=== PATIENT | male | born 1955 ===

== ENCOUNTER 2021-07-18 06:44 | Day surgery (SDC) | payer BC, OTHER ==
[2021-07-15 13:34] LABS: Absolute Lymphocytes (CBC) 2.2 K/uL (0.7-4.9); Hematocrit 41.9 % (39.6-49.0); RBC Red Blood Cell Count 4.36 M/uL (4.33-5.43)
[2021-07-15 13:42] LABS: Potassium 4.4 mmol/L (3.5-5.1)
[2021-07-15 13:45] LABS: Protime INR 1.59
--- NOTE | 2021-07-15 14:29 | RAD REPORT ---
EXAM DESCRIPTION: RAD - Chest Pa And Lat (2 Views) - 07/15/2021 2:00 pm CLINICAL HISTORY: Pre op pending carotid angiogram COMPARISON: Portable 04/20/2016 TECHNIQUE: Frontal and lateral views of the chest were obtained. FINDINGS: The lungs are clear. Sternotomy wires are in place. Heart size is normal and central vasc ulature is within normal limits. No pleural effusion or pneumothorax seen. No acute bony finding no valente. No aortic abnormality. IMPRESSION: No acute cardiopulmonary process.
[~2021-07-18 06:44] MED LIST: ATROPINE SULF 1 MG/10 ML SYR IV ONE; FENTANYL CITR 100 MCG/2 ML ONE; HEPA 1000U/500MLS 1,000 UNIT/500 ML BAG IV ONE; LIDOCAINE 1% 20 ML MDV ONE; MIDAZOLAM HCL 2 MG/2 ML INJ ONE
[2021-07-18] MEDS ORDERED: NA CHLORIDE 0.9% 500 ML ONE (06:49)
[2021-07-18 09:29] VITALS: O2SAT 98
--- NOTE | 2021-07-18 09:46 | OP ---
Surgeon: Nicholas Foster MD Bird Cage Assembler: Ms. Ivet Mcgrath. Procedure: Selective bilateral carotid angiogram. Indication: Cerebrovascular disease and abnormal carotid Doppler. History Of Present Illness: Mr. Loera is 66, has had a history of CABG. He has hypertension, dysli pidemia, and had a direct endarterectomy in the past. He was brought to the manager lab today because o f abnormal carotid Doppler. Procedure In Detail: In the manager lab, he was prepped and draped in routine sterile fashion. He was given Versed and fentanyl for sedation. A 6-Faroese sheath was introduced in the right common femoral artery successfully using 10 mL of xylocaine and the Seldinger technique. Angiography there was nor mal. Angio-Seal was used to close the case. A Mary catheter, JR4 was initially introduced and ca nnulated the right common carotid artery selectively. Angiography there showed patent endarterectomy site without any focal stenosis in the common carotid, external carotid, or internal carotid. I cou ld not cannulate the left common carotid with the JR4, so I changed it to a 3DRC catheter, selected t he left common carotid. Angiography there showed 50% to 60% stenosis in the left internal carotid ju st past endarterectomy site. The left common carotid and left external carotid were normal. The pat ient tolerated the procedure well. There were no complications. Blood Loss: 5 mL. Anesthesia: Total conscious sedation was 30 minutes. Final Diagnosis: Moderate coronary artery and moderate cerebrovascular disease, status post bilatera l carotid endarterectomy in the past. Plan: I will plan to increase his Lipitor from 40 mg daily to 80 mg daily. Continue following his c arotid with serial Dopplers over the next 6 months to a year. He will go home today after 2 hours of bedrest and I will see him in the office in 2 weeks. JOSE/LOLYL Voice ID: [id number] Report ID: [id number]
[2021-07-18 10:03] VITALS: BP 132/71
--- NOTE | 2021-07-18 11:21 | EKG ---
Test Date: 2021-07-15 Test Time: 12:01:40 Turret Lathe Machinist: ZONIA MEASUREMENT RESULTS: Intervals: Rate: 52 NE: 152 QRSD: 92 QT: 468 QTc: 435 [place]: P: -27 NE: 152 QRS: -19 T: 70 INTERPRETIVE STATEMENTS: Sinus bradycardia Possible Inferior infarct, age undetermined Anterolateral infarct, age undetermined Abnormal ECG Compared to ECG 04/20/2016 11:55:02 Sinus rhythm no longer present T-wave abnormality no longer present Possible ischemia no longer present Myocardial infarct finding still present Electronically Signed On 07-18-21 11:13:36 CDT by Nicholas Foster
== END 2021-07-18 10:04 | disposition home or self-care (01) ==
LOC: CCL 06:44
DX: I65.22 Occlusion and stenosis of left carotid artery (principal); I25.10 Atherosclerotic heart disease of native coronary artery without angina pectoris; I10 Essential (primary) hypertension; E78.2 Mixed hyperlipidemia; I27.82 Chronic pulmonary embolism; Z95.1 Presence of aortocoronary bypass graft
CPT/HCPCS: 93005; 85025; 80048; 36415; 85610; 85730; 71046; 36222; U0003; C1893; C1760; G0269; J2250; J3010; J7040; J1644

== ENCOUNTER 2022-11-08 10:13 | Day surgery (SDC) | payer BC ==
--- NOTE | 2022-11-07 10:41 | RAD REPORT ---
EXAM DESCRIPTION: RAD - Chest Pa And Lat (2 Views) - 11/07/2022 10:34 am CLINICAL HISTORY: pre operative COMPARISON: Chest Pa And Lat (2 Views) dated 07/15/2021; Chest Single View dated 04/20/2016 FINDINGS: Lines: None. Lungs: No evidence of edema or pneumonia. Pleural: No significant pleural effusions or pneumothorax. Cardiac: The heart size is within normal limits. Mediastinum: Within normal limits. Bones: No acute fractures. Other: Sternotomy IMPRESSION: No acute cardiopulmonary disease.
[2022-11-07 10:57] LABS: Absolute Lymphocytes (CBC) 2.3 K/uL (0.7-4.9); Hematocrit 46.2 % (39.6-49.0); Lymphocytes % 33.5 % (15.3-44.8); MCV 96.7 fL (80-100); MPV 7.7 fL (7.6-11.3); Platelets 186 thou/uL (152-406); RBC Red Blood Cell Count 4.78 M/uL (4.33-5.43)
[2022-11-07 11:02] LABS: Protime INR 1.11
[2022-11-07 11:20] LABS: Potassium 4.4 mEq/L (3.5-5.1)
[2022-11-08] MEDS ORDERED: NA CHLORIDE 0.9% 500 ML ONE (10:25)
[2022-11-08] MEDS ORDERED: CLOPIDOGREL 75 MG TABLET ONE (10:47)
[2022-11-08] MEDS ORDERED: LIDOCAINE 1% 20 ML MDV ONE (10:47)
[2022-11-08] MEDS ORDERED: FENTANYL CITR 100 MCG/2 ML ONE (10:47)
[2022-11-08] MEDS ORDERED: HEPA 1000U/500MLS 2,000 UNIT/1,000 ML BAG IV ONE (10:47)
[2022-11-08] MEDS ORDERED: MIDAZOLAM HCL 2 MG/2 ML INJ ONE (10:47)
[2022-11-08] MEDS ORDERED: TICAGRELOR 90 MG TABLET PO ONE (10:48)
[2022-11-08] MEDS ORDERED: ATROPINE SULF 1 MG/10 ML SYR IV ONE (10:48)
[2022-11-08] MEDS ORDERED: HEPARIN 10,000 UNIT/10 ML VIAL IV ONE (10:48)
[2022-11-08] MEDS ORDERED: ASPIRIN 325 MG TAB ONE (10:48)
[2022-11-08 13:00] VITALS: TEMP 96.8
[2022-11-08 13:21] VITALS: O2SAT 99
--- NOTE | 2022-11-08 14:02 | OP ---
Date of Procedure: 11/08/2022 Surgeon: JACEY VASQUES Procedures Performed: 1.Selective coronary angiogram with bypass graft study. 2.Bilateral carotid angiogram. Indication: 1.Carotid stenosis by Doppler. 2.Coronary artery disease with abnormal stress test. Access: Right femoral artery 6-Thai closed with 6-Thai Angio-Seal. Complications: None. Bleeding: Less than 20 mL. Anesthesia: Total sedation time was 30 minutes, used fentanyl and Versed. Description Of Procedure: After risks, benefits, and alternatives were explained, the patient agreed to procedure and signed informed consent. The patient was brought into the cardiac catheterization laboratory, prepped and draped in the usual sterile fashion. Then, I accessed the right femoral aldo ry using micropuncture kit, fluoroscopy, and ultrasound guidance, placed a 6-Thai Colton sheath, took a 6-Thai JL4 catheter into the aortic root, engaged left main, took standard views, and exchan ged for 6-Thai 3DRC catheter, engaged the RCA, took standard views and then engaged the right commo n carotid artery, took standard views, and then the left common carotid artery and took standard view s. Subsequently, the catheter was advanced into subclavian artery on the left and engaged the WASHBURN, and standard views were taken. Then, catheter was removed, sheath was removed. A 6-Thai Angio-Sea l was used for closure with good hemostasis. Findings: 1.Left main; normal. 2.LAD; ostially occluded and there was either a high OM or a ramus intermedius artery that is widely patent. 3.Left circumflex; moderate size with midshaft 40% stenosis and then OM branches are small. 4.RCA; it is large and dominant, proximal 50% to 60% stenosis in . 5.Patent WASHBURN to distal LAD. Carotid angiogram; 1.Right common carotid is normal, right external carotid is normal, and the right internal carotid h as proximal 50% stenosis. 2.Left common carotid is normal, left external carotid is normal, and the left internal carotid has proximal 60% stenosis. Conclusion: 1.Occluded LAD with patent WASHBURN. Otherwise, moderate coronary artery disease elsewhere. 2.Moderate carotid stenoses bilaterally. Recommendation: Medical management. /SUZAN Voice ID: [id number] Report ID: [id number]
[2022-11-08 14:36] VITALS: BP 143/80
--- NOTE | 2022-11-08 19:19 | EKG ---
Test Date: 2022-11-07 Test Time: 10:05:24 Claims Examiner: LF MEASUREMENT RESULTS: Intervals: Rate: 58 AL: 168 QRSD: 94 QT: 454 QTc: 445 [place]: P: 7 AL: 168 QRS: -21 T: 65 INTERPRETIVE STATEMENTS: Sinus bradycardia Possible Inferior infarct, age undetermined Anterolateral infarct, age undetermined Abnormal ECG Compared to ECG 07/15/2021 12:01:40 No significant changes Electronically Signed On 11-08-22 19:16:59 CDT by Emile Ace
== END 2022-11-08 14:38 | disposition home or self-care (01) ==
LOC: CCL 10:13
PROVIDERS: ATTEND Internal Medicine
DX: I25.10 Atherosclerotic heart disease of native coronary artery without angina pectoris (principal); I25.82 Chronic total occlusion of coronary artery; I65.23 Occlusion and stenosis of bilateral carotid arteries; I11.0 Hypertensive heart disease with heart failure; I50.21 Acute systolic (congestive) heart failure; E78.2 Mixed hyperlipidemia; I27.82 Chronic pulmonary embolism; Z95.1 Presence of aortocoronary bypass graft; Z79.899 Other long term (current) drug therapy; Z01.810 Encounter for preprocedural cardiovascular examination
CPT/HCPCS: 93005; 85025; 80048; 36415; 85610; 85730; 71046; 93455; 36222; 76937; C1893; Q9966; C1760; G0269; J2001; J2250; J3010; J7040; 93454; J0461